=== PATIENT | female | born 2000 | race Hispanic/Latino ===

== ENCOUNTER 2024-02-21 18:15 | Inpatient (IN) | payer OTHER ==
[~2024-02-21] VITALS: Ht 160 cm; Wt 69.2 kg
[2024-02-21 19:14] LABS: HEMATOCRIT 38.2 % (36.0-47.0); HEMOGLOBIN 12.1 g/dl (12.0-15.5); MEAN CORPUSCULAR HEMOGLOBIN 26.4 pg (27.0-33.0); MEAN CORPUSCULAR HGB CONC 31.7 g/dl (32.0-36.5); MEAN CORPUSCULAR VOLUME 83.4 fl (80.0-96.0); PLATELET COUNT, AUTOMATED 262 10^3/uL (150-450); RED BLOOD COUNT 4.58 10^6/uL (4.00-5.40)
[2024-02-21 19:26] LABS: AMPHETAMINES LEVEL URINE NEGATIVE (NEGATIVE); BARBITURATES URINE NEGATIVE (NEGATIVE); BENZODIAZEPINES URINE NEGATIVE (NEGATIVE); CANNABINOIDS URINE NEGATIVE (NEGATIVE); COCAINE METABOLITE URINE NEGATIVE (NEGATIVE); METHADONE URINE NEGATIVE (NEGATIVE); OPIATES URINE NEGATIVE (NEGATIVE); PHENCYCLIDINE URINE NEGATIVE (NEGATIVE)
[2024-02-21 19:28] LABS: ETHYL ALCOHOL (ETHANOL) < 0.003 % (0.000-0.010)
[2024-02-21 19:30] LABS: ALBUMIN 4.6 G/DL (3.2-5.2); ALKALINE PHOSPHATASE 84 U/L (35-104); ALT/SGPT 16 U/L (7.0-40); AST/SGOT 12 U/L (<34); BILIRUBIN,DIRECT 0.1 MG/DL (<0.4); BILIRUBIN,TOTAL 0.4 MG/DL (0.3-1.2); BLOOD UREA NITROGEN 11 MG/DL (9-23); CARBON DIOXIDE LEVEL 28 MMOL/L (20-31); CHLORIDE LEVEL 106 MMOL/L (98-107); CREATININE FOR GFR 0.62 MG/DL (0.55-1.30); GLOMERULAR FILTRATION RATE > 60.0 (>60); GLUCOSE, FASTING 98 MG/DL (60-100); SALICYLATE LEVEL < 3.0 MG/DL (<30); SODIUM LEVEL 139 MMOL/L (136-145); TOTAL PROTEIN 8.2 G/DL (5.7-8.2)
[2024-02-21 19:32] LABS: THYROID STIMULATING HORMONE 1.456 uIU/ML (0.55-4.78)
[2024-02-21 19:35] LABS: HCG, SERUM QUALITATIVE NEGATIVE (NEGATIVE)
[2024-02-21] MEDS ORDERED: MAALOX 30 ML SUSP *UDC PO PRN (20:40)
[2024-02-21] MEDS ORDERED: MOM 30ML SUSPENSION UDC PO PRN (20:40)
[2024-02-21] MEDS ORDERED: ACETAMINOPHEN 325 MG TAB PO PRN (20:40)
[2024-02-21] MEDS ORDERED: diphenhydrAMINE 25MG CAP PO PRN (20:40)
[2024-02-21] MEDS ORDERED: IBUPROFEN 400MG TAB PO PRN (20:40)
[2024-02-21] MEDS ORDERED: HOME MED LIST COMPLETE! XX SCH (21:15)
[2024-02-21] MEDS: traZODone 50 MG TAB PO PRN (22:38)
[2024-02-21 22:45] VITALS: BP 117/73; TEMP 97.3; O2SAT 97
[2024-02-22 06:50] VITALS: BP 133/68; TEMP 97.6; O2SAT 98
[2024-02-22 06:51] VITALS: TEMP 97.6
[2024-02-22] MEDS ORDERED: NICOTINE 7 MG/24 HR TRANSDERMAL TD PRN (13:55)
[2024-02-22 15:05] VITALS: BP 113/60; TEMP 98.4; O2SAT 100
[2024-02-22] MEDS: SERTRALINE HCL 25 MG TABLET PO SCH (21:06)
[2024-02-23 06:06] VITALS: BP 148/72; TEMP 97.2; O2SAT 99
[2024-02-23] MEDS ORDERED: NICO7PA TD (08:16)
[2024-02-23] MEDS ORDERED: SERT25TA21 PO (08:16)
== END 2024-02-23 11:40 | disposition home or self-care (01) | DRG 881 ==
LOC: M ED 18:15 → M PSY 21:50
PROVIDERS: ADMIT Psychiatry & Neurology Neurology; ATTEND Psychiatry & Neurology Psychiatry
DX: F32.A Depression, unspecified (principal); R45.851 Suicidal ideations; F41.9 Anxiety disorder, unspecified; Z62.811 Personal history of psychological abuse in childhood; Z91.51 Personal history of suicidal behavior; F17.210 Nicotine dependence, cigarettes, uncomplicated; F17.290 Nicotine dependence, other tobacco product, uncomplicated

== ENCOUNTER 2024-12-22 06:57 | Emergency (ER) | payer OTHER ==
[~2024-12-22] VITALS: Ht 157.5 cm; Wt 70.5 kg
[~2024-12-22 06:57] MED LIST: NICO7PA TD; SERT25TA21 PO
[2024-12-22] MEDS ORDERED: ACET1TAB55 PO (07:08)
[2024-12-22 08:35] LABS: URINE PREG TEST NEGATIVE (NEGATIVE)
[2024-12-22] MEDS: CYCLOBENZAPRINE 5 MG TABLET PO ONE (08:48)
[2024-12-22] MEDS: KETOROLAC 30 MG/ML 1 ML VIAL IM ONE (08:49)
[2024-12-22] MEDS: LIDOCAINE 5% PATCH TD ONE (08:49)
[2024-12-22] MEDS ORDERED: LIDO1ADH93 TD (10:02)
[2024-12-22] MEDS ORDERED: CYCL5TAB4 PO (10:02)
[2024-12-22] MEDS ORDERED: IBUP600T42 PO (10:02)
[2024-12-22 10:07] VITALS: BP 126/77; TEMP 97.8; O2SAT 99
== END 2024-12-22 10:12 | disposition home or self-care (01) ==
LOC: M ED 06:57
DX: M54.42 Lumbago with sciatica, left side (principal); F32.A Depression, unspecified; F17.210 Nicotine dependence, cigarettes, uncomplicated; Z79.1 Long term (current) use of non-steroidal anti-inflammatories (NSAID); Z79.899 Other long term (current) drug therapy
CPT/HCPCS: 84703; 96372; 99283; J1885